=== PATIENT | male | born 1970 | race Hispanic/Latino ===

== ENCOUNTER 2023-07-21 06:00 | Day surgery (SDC) | payer OTHER ==
[2023-07-16 11:24] LABS: BASOPHILS # (AUTO) 0.07 K/uL (0.00-0.20); EOSINOPHILS % (AUTO) 1.5 % (0.0-8.0); HEMATOCRIT 46.3 % (42-54); IMMATURE GRANULOCYTE ABSOLUTE 0.02 K/uL (0-1); LYMPHOCYTES # (AUTO) 2.5 K/uL (1.0-4.8); LYMPHOCYTES % (AUTO) 37.9 % (21.0-51.0); MEAN CORPUSCULAR HEMOGLOBIN 31.5 pg (27.0-33.0); MEAN CORPUSCULAR HGB CONC 34.3 g/dL (32.0-36.0); MEAN CORPUSCULAR VOLUME 91.7 fL (79-99); MONOCYTES # (AUTO) 0.4 K/uL (0.1-1.0); MONOCYTES % (AUTO) 5.7 % (3.0-13.0); NEUTROPHILS # (AUTO) 3.6 K/uL (1.8-7.7); NEUTROPHILS % (AUTO) 53.6 % (40.0-77.0); PLATELET COUNT (AUTO) 285 K/uL (130-400); RED BLOOD CELL COUNT(AUTO) 5.05 MIL/uL (4.50-6.20); RED CELL DISTRIBUTION WIDTH 13.2 % (11.0-15.5); WHITE BLOOD COUNT (AUTO) 6.7 K/uL (4.8-10.8)
[2023-07-16 11:26] VITALS: BP 140/83; PULSE 71; RESP 18
[2023-07-16 11:29] LABS: CREATININE 1.1 mg/dL (0.5-1.5); POTASSIUM 4.1 mmol/L (3.5-5.1)
[2023-07-16 11:33] LABS: INR 1.07 (0.85-1.15); PROTHROMBIN TIME 12.4 SEC (9.6-11.6)
[2023-07-16 11:34] LABS: PARTIAL THROMBOPLASTIN TIME 31.3 SEC (26.3-35.5)
[~2023-07-21] VITALS: Ht 180.3 cm; Wt 101.9 kg
[2023-07-21] VITALS (17 sets, daily range): BP systolic 125–152; BP diastolic 60–97; PULSE 59–84; RESP 12–18
[~2023-07-21 06:00] MED LIST: ATOR10TA69 PO; EMPA1TAB11 PO; LOSA50TA64 PO; VITAMIN B PO
[2023-07-21] MEDS ORDERED: CEFAZOLIN SODIUM 2 GM VIAL ONE (06:13)
[2023-07-21] MEDS ORDERED: 0.9%NACL 1000ML 1,000 ML IV ONE (06:13)
[2023-07-21] MEDS ORDERED: CEFAZOLIN SODIUM 1 GM VIAL ONE (06:13)
[2023-07-21] MEDS ORDERED: LIDOCAINE PF 100MG/5ML (2%) SYRINGE 5ML ONE (06:39)
[2023-07-21] MEDS ORDERED: SUCCINYLCHOLINE 200MG/10ML SYR ONE (06:39)
[2023-07-21] MEDS ORDERED: GLYCOPYRROLATE 1 MG/5 ML SYRINGE ONE (06:40)
[2023-07-21] MEDS ORDERED: DEXAMETHASONE SOD PHOSPHATE 10MG/ML 1ML VIAL ONE (06:40)
[2023-07-21] MEDS ORDERED: ONDANSETRON 4MG INJ ONE ×2 (06:40→09:29)
[2023-07-21] MEDS ORDERED: PROPOFOL 10 MG/ML 20ML VIAL IV ONE ×2 (06:40→08:34)
[2023-07-21] MEDS ORDERED: ROCURONIUM 10MG/1ML SYR 10 MG/ML ML ONE (06:41)
[2023-07-21] MEDS ORDERED: NEOSTIGMINE 5MG/5ML SYR IV ONE (06:41)
[2023-07-21] MEDS ORDERED: FENTANYL CITRATE PF 50 MCG/1 ML 5ML AMP IV ONE ×2 (06:41→08:08)
[2023-07-21] MEDS ORDERED: MIDAZOLAM HCL 1 MG/ML 5ML VIAL ONE (06:56)
[2023-07-21] MEDS ORDERED: ROPIVACAINE 0.5% 5MG/ML 30ML IJ ONE (06:56)
[2023-07-21] MEDS ORDERED: KETAMINE 50MG/ML SYRINGE 50 MG/ML DISP.SYRIN ONE (06:56)
[2023-07-21] MEDS ORDERED: LIDOCAINE HCL 400MG/20ML VIAL ONE (06:56)
[2023-07-21] MEDS ORDERED: BUPIVACAINE/PF 0.5% 30ML VIAL ONE (07:08)
[2023-07-21] MEDS ORDERED: EPINEPHRINE PF 1MG (1:1,000) 1 MG/ML AMP ONE (07:09)
[2023-07-21] MEDS ORDERED: EPINEPHRINE PF 1MG (1:1,000) 1 MG/ML AMP INJ ONE (08:12)
[2023-07-21] MEDS ORDERED: BUPIVACAINE/PF 0.5% 30ML VIAL INJ ONE (08:12)
[2023-07-21] MEDS ORDERED: KETOROLAC 30MG VIAL (30MG/ML) ONE (08:21)
[2023-07-21] MEDS ORDERED: MEPERIDINE-PF 25 MG/ML SYG ONE ×2 (08:48→09:29)
[2023-07-21] MEDS ORDERED: DOCU-116 PO (08:53)
[2023-07-21] MEDS ORDERED: TRAM50TA4 PO (08:53)
[2023-07-21] MEDS ORDERED: METH-662 PO (08:53)
[2023-07-21] MEDS ORDERED: GABA-529 PO (08:53)
== END 2023-07-21 10:36 | disposition home or self-care (01) ==
LOC: DAH 06:00
PROVIDERS: ATTEND Surgery
DX: K43.0 Incisional hernia with obstruction, without gangrene (principal); E11.9 Type 2 diabetes mellitus without complications; E66.9 Obesity, unspecified; Z79.899 Other long term (current) drug therapy; Z79.01 Long term (current) use of anticoagulants; Z79.84 Long term (current) use of oral hypoglycemic drugs
CPT/HCPCS: 36415; 80048; 85025; 85730; 85610; 49618; 82948 ×2; 64488; A6260; A4663; J7030 ×3; J3010 ×2; J0690 ×2; J3490 ×5; J0330; J1100; J2710; J2001; J0171 ×2; J2250; J2704 ×2; J2405 ×2; J1885; J2175 ×2; J2795; C1769 ×2; A4649 ×2; A4930 ×2; A4215; A4223; A4222; A4221; A4600